=== PATIENT | female | born 1965 | race Asian ===

== ENCOUNTER 2019-02-14 09:38 | Emergency (ER) | payer OTHER ==
[~2019-02-14] VITALS: Ht 165.1 cm; Wt 86.2 kg
[2019-02-14 10:01] VITALS: BP 134/86
[2019-02-14] MEDS ORDERED: diphenhdrAMINE HCL 25 MG CAP PO ONE (10:45)
[2019-02-14] MEDS ORDERED: PROMETHAZINE HCL 25 MG/ML 1ML IM ONE (10:45)
[2019-02-14] MEDS ORDERED: KETOROLAC TROMETH 60MG/2ML VIAL IM ONE (10:45)
== END 2019-02-14 11:04 | disposition home or self-care (01) ==
LOC: ER 09:42
DX: R51 Headache (principal); E78.5 Hyperlipidemia, unspecified
CPT/HCPCS: 70450; 96372; 99284; J1885; J2550